=== PATIENT | male | born 1965 | race Caucasian/White ===

== ENCOUNTER → 2017-03-11 | Outpatient (CLI) | payer MEDICARE, OTHER ==
--- NOTE | 2017-03-12 10:44 | Diagnostic Imaging Report ---
Indication: COUGH Technique: Two views of the chest Comparison: 03/23/2015 Findings: Right hemidiaphragm is elevated. There is a resultant compressive atelectasis. The heart is borderline enlarged. Lungs and pleural spaces are otherwise clear. Findings are unchanged Impression: No acute process. Stable findings as described
== END | disposition home or self-care (01) ==
LOC: RAD 16:49
DX: J20.9 Acute bronchitis, unspecified (principal); R05 Cough
CPT/HCPCS: 71020

== ENCOUNTER 2017-11-25 17:04 | Outpatient (CLI) | payer MEDICARE, OTHER ==
--- NOTE | 2017-11-26 11:34 | Diagnostic Imaging Report ---
Indication: Dyspnea Comparison: March 11, 2017 2 views of the chest obtained. Studies are technically dissimilar. No obvious infiltrate seen. Lung volumes are low. Heart size is within normal limits. Bones are osteopenic. IMPRESSION: No acute findings
== END 2017-11-25 19:04 | disposition home or self-care (01) ==
LOC: RAD 17:04
DX: Z01.818 Encounter for other preprocedural examination (principal)
CPT/HCPCS: 71046

== ENCOUNTER 2020-05-02 05:55 | Day surgery (SDC) | payer OTHER, MEDICARE ==
--- NOTE | 2020-05-01 18:34 | Pre-Procedure Note/Attestation ---
Pre-Procedure Note/Attestation Complete Prior to Procedure Planned Procedure: right Procedure Narrative: Excise right cheeck skin cancer Advancement flap closure Indications for Procedure Pre-Operative Diagnosis: Skin cancer right cheek with frozen section clearance. Attestation I attest that I discussed the nature of the procedure; its benefits; risks and complications; and alternatives (and the risks and benefits of such alternatives ), prior to the procedure, with the patient (or the patient's legal business center representative). I attest that, if there was a reasonable possibility of needing a blood transfusion, the patient (or the patient's legal business center representative) was given the [facility] standardized written summary, pursuant to the Sal Nikolai Blood Safety Act ([place] Health and Safety Code # 1645, as amended). I attest that I re-evaluated the patient just prior to the surgery and that there has been no change in the patient's H&P, supplied by pts PMD and reviewed by me. Aquilino Piña MD May 01, 2020 18:34
--- NOTE | 2020-05-01 18:36 | Brief Operative Note ---
Immediate Post Operative Note Operative Note Chief Complaint: Skin cancer right cheek Pre-op Diagnosis: Skin cancer right cheek with frozen section clearance. Procedure: Excise right cheeck skin cancer Advancement flap closure Frozen section clearance Post-op Diagnosis: same as pre-op Findings: consistent w/pre-op dx studies Surgeon: Aquilino Piña [employer] Project Manager: none Additional Surgeons: none Anesthesiologist: Jaskaran Anesthesia: MAC Specimen: yes Complications: none Condition: stable Fluids: D5LR Estimated Blood Loss: volume - 15cc Drains: none Packing: none Implant(s) used?: No Aquilino Piña MD May 01, 2020 18:36
--- NOTE | 2020-05-01 18:39 | Discharge Instructions ---
Discharge Instructions Discharge Instructions Follow up with: Dr. Piña next week-pt has appt. already Diet: regular Resume Normal Activity?: Yes Activity: resume normal activities Pneumonia Vaccine: pt refused vaccine Influenza Vaccine (Aug to Jan): pt refused vaccine Follow Up Orders Pt has Keflex and Newcomb already to use post op. Pt has printed instructions and post op meds already form pre op visit in my office last week. Return to Work/School on: May 15, 2020 Special Instructions ice to right cheek x 48 hours. For Surgical Patients Dressing Care: keep dry and clean Contact your physician for: bleeding, pain, tenderness, redness, swelling, yellowish discharge in the op. site For Congestive Heart Failure Reminder Report to your physician any weight gain of 5 pounds or more in one week. Aquilino Piña MD May 01, 2020 18:38
[~2020-05-02] VITALS: Ht 190.5 cm; Wt 110.7 kg
[2020-05-02] VITALS (12 sets, daily range): BP systolic 106–121; BP diastolic 71–80
[~2020-05-02 05:55] MED LIST: dexAMETHasone 10mg/ml Inj PF*Surgery use IV ONE
[2020-05-02] MEDS ORDERED: LR 1000ml ONE (07:00)
[2020-05-02] MEDS ORDERED: NS Irrig 1000ml ONE (07:00)
[2020-05-02] MEDS ORDERED: Sterile Water Irrig 1000ml IRRIG ONE (07:00)
[2020-05-02] MEDS ORDERED: ceFAZolin sod 1 GM in D5W 55 ML IV ONE (07:10)
[2020-05-02] MEDS ORDERED: Lidocaine 1% MPF 10mg/ml 5ml ONE (07:20)
[2020-05-02] MEDS ORDERED: Sodium Chloride 10ml vial INJ ONE (07:20)
[2020-05-02] MEDS ORDERED: fentaNYL 100 mcg/2 mL IV ONE (07:21)
[2020-05-02] MEDS ORDERED: Midazolam 2mg/2ml Inj ONE (07:21)
--- NOTE | 2020-05-02 07:24 | Anethesia Preoperative Eval ---
Anesthesia Pre-op PMH/ROS General Date of Evaluation: May 02, 2020 Time of Evaluation: 07:27 Anesthesiologist: Jaskaran ASA Score: ASA 3 Mallampati Score Class I : Soft palate, uvula, fauces, pillars visible Class II: Soft palate, uvula, fauces visible Class III: Soft palate, base of uvula visible Class IV: Only hard plate visible Mallampati Classification: Class II Surgeon: Ayana Diagnosis: R Cheek Scar Surgical Procedure: Excise R Cheek Scar Anesthesia History: none Family History: no anesthesia problems Allergies: Coded Allergies: DIMETHICONE (Verified Allergy, Severe, RED SKIN, 05/02/20) LEVOFLOXACIN (Verified Allergy, Severe, HIVES, 05/02/20) PROCHLORPERAZINE (Verified Allergy, Severe, Anaphylaxis, 05/01/20) VALACYCLOVIR (Verified Allergy, Severe, HIVES , ITCHING, 05/02/20) ZOLPIDEM (Verified Allergy, Severe, Anaphylaxis, 05/01/20) ERYTHROMYCIN BASE (Verified Allergy, Intermediate, Rash, 05/01/20) cramping SULFA (SULFONAMIDE ANTIBIOTICS) (Verified Allergy, Unknown, 05/02/20) Medications: see eMAR Patient NPO?: Yes Past Medical History Cardiovascular: Reports: other - HL Gastrointestinal/Genitourinary: Reports: GERD Hematology/Immune: Reports: other - HIV, Multiple Tumors PSxH Narrative: Multiple Abd Operations Anesthesia Pre-op Phys. Exam Physician Exam Last Vital Signs Date Time Temp Pulse Resp B/P (MAP) Pulse Ox O2 Delivery O2 Flow Rate FiO2 05/02/20 06:32 97.6 77 18 115/79 96 Room Air Constitutional: NAD Neurologic: CN 2-12 intact Cardiovascular: RRR Respiratory: CTA Gastrointestinal: S/NT/ND Airway Exam Mallampati Score: Class II MO: full ROM: limited Teeth: missing, intact Anesthesia Pre-op A/P Risk Assessment & Plan Assessment: ASA 3 Plan: GA, SED Status Change Before Surgery: No Pre-Antibiotics Dru Gram Ancef IV Given Within 1 Hr of Incision: Yes Time Given: 07:51 Merrill Jessica MD May 02, 2020 07:24
--- NOTE | 2020-05-02 07:25 | Immediate Post-Op Evaluation ---
Immediate Post-Op Evalulation Immediate Post-Op Evalulation Procedure: Excise R Cheek Scar Date of Evaluation: May 02, 2020 Time of Evaluation: 09:30 IV Fluids: 900 LR Blood Products: 0 Estimated Blood Loss: 15 Urinary Output: 0 Blood Pressure Systolic: 113 Blood Pressure Diastolic: 74 Pulse Rate: 72 Respiratory Rate: 16 O2 Sat by Pulse Oximetry: 100 Temperature (Fahrenheit): 97.7 Pain Score (1-10): 2 Nausea: No Vomiting: No Complications 0 Patient Status: awake, reacts, patent, extubated, none Hydration Status: adequate Dru Gram Ancef IV Given Within 1 Hr of Incision: Yes Time Given: 07:51 Merrill Jessica MD May 02, 2020 07:25
--- NOTE | 2020-05-02 07:25 | 48 Hour Post Anesthesia Eval ---
Post Anesthesia Evaluation Procedure: Excise R Cheek Scar Date of Evaluation: May 02, 2020 Time of Evaluation: 11:43 Blood Pressure Systolic: 118 0: 83 Pulse Rate: 72 Respiratory Rate: 18 Temperature (Fahrenheit): 98 O2 Sat by Pulse Oximetry: 96 Airway: patent Nausea: No Vomiting: No Pain Intensity: 2 Hydration Status: adequate Cardiopulmonary Status: Stable Mental Status/LOC: patient returned to baseline Follow-up Care/Observations: 0 Post-Anesthesia Complications: 0 Follow-up care needed: ready to discharge Merrill Jessica MD May 02, 2020 07:25
[2020-05-02] MEDS ORDERED: Lidocaine 1% 10mg/ml/Epi 0.005mg/ml 30ml vial INJ ONE (07:27)
[2020-05-02] MEDS ORDERED: VITAMIN D PO (07:28)
[2020-05-02] MEDS ORDERED: IPRATROPIU0.2 MG/1 M HHN (07:28)
[2020-05-02] MEDS ORDERED: MAXALT10 MG PO (07:28)
[2020-05-02] MEDS ORDERED: TRELEGY ELLIPTA INH (07:28)
[2020-05-02] MEDS ORDERED: SPRIX PO (07:28)
[2020-05-02] MEDS ORDERED: CELEBREX200 MG ORAL (07:28)
[2020-05-02] MEDS ORDERED: BUDESONIDE0.5 MG/2 M IH (07:28)
[2020-05-02] MEDS ORDERED: FLAX SEED OIL1000 MG PO (07:28)
[2020-05-02] MEDS ORDERED: ZYRTEC10 MG ORAL (07:28)
[2020-05-02] MEDS ORDERED: LYRICA75 M1 ORAL (07:28)
[2020-05-02] MEDS ORDERED: SIMETHICONE180 MG PO (07:28)
[2020-05-02] MEDS ORDERED: TRAMADOL HCL50 MG ORAL (07:28)
[2020-05-02] MEDS ORDERED: GABAPENTIN600 MG ORAL (07:28)
[2020-05-02] MEDS ORDERED: ZETIA10 MG ORAL (07:28)
[2020-05-02] MEDS ORDERED: [UNRECOGNIZED DRUG - OTHER] PO (07:28)
[2020-05-02] MEDS ORDERED: SINGULAIR10 MG ORAL (07:28)
[2020-05-02] MEDS ORDERED: ZOFRAN4 M1 ORAL (07:28)
[2020-05-02] MEDS ORDERED: EDURANT25 MG PO (07:28)
[2020-05-02] MEDS ORDERED: INSPRA50 MG PO (07:28)
[2020-05-02] MEDS ORDERED: CYMBALTA60 MG ORAL (07:28)
[2020-05-02] MEDS ORDERED: CYCLOBENZAPRINE10 MG ORAL (07:28)
[2020-05-02] MEDS ORDERED: AMITIZA24 MCG ORAL (07:28)
[2020-05-02] MEDS ORDERED: QVAR7.3 GM INH (07:28)
[2020-05-02] MEDS ORDERED: SONATA PO (07:28)
[2020-05-02] MEDS ORDERED: VENTOLIN HFA18 GM INH (07:28)
[2020-05-02] MEDS ORDERED: ATORVASTATIN CA20 MG ORAL (07:28)
[2020-05-02] MEDS ORDERED: SILENOR3 MG PO (07:28)
[2020-05-02] MEDS ORDERED: ACYCLOVIR400 MG ORAL (07:28)
[2020-05-02] MEDS ORDERED: BIKTARVY 50-201 EACH PO (07:28)
[2020-05-02] MEDS ORDERED: ALBUTEROL2.5 MG/3 M INH (07:28)
[2020-05-02] MEDS ORDERED: MULTI VITAMIN1 EACH ORAL (07:28)
[2020-05-02] MEDS ORDERED: BENADRYL25 MG ORAL (07:28)
[2020-05-02] MEDS ORDERED: LR 1000ml 1,000 ML IVLG SCH (07:32)
[2020-05-02] MEDS ORDERED: HYDROcodone/Acetamin 7.5/325 tab ORAL PRN (07:45)
[2020-05-02] MEDS ORDERED: LORazepam Inj 2mg/ml 1ml IV PRN (07:45)
[2020-05-02] MEDS ORDERED: Ketorolac 30mg Inj IV PRN ×2 (07:45)
[2020-05-02] MEDS ORDERED: oxyCODONE HCL/Acetaminophen 5/325mg ORAL PRN (07:45)
[2020-05-02] MEDS ORDERED: Hydromorphone 0.5mg/0.5ml inj IVP PRN (07:45)
[2020-05-02] MEDS ORDERED: Labetalol 5mg/ml 20ml vial IV PRN (07:45)
[2020-05-02] MEDS ORDERED: fentaNYL 100 mcg/2 mL IV PRN (07:45)
[2020-05-02] MEDS ORDERED: DiphenhydrAMINE 50mg/ml Inj IVP PRN (07:45)
[2020-05-02] MEDS ORDERED: Acetaminophen (Non formulary) 100 ML IV ONE (07:45)
[2020-05-02] MEDS ORDERED: Metoclopramide 10mg/2ml Inj IVP PRN ×2 (07:45→09:15)
[2020-05-02] MEDS ORDERED: Meperidine 25mg/0.5ml Inj (FOR RIGORS ONLY) IV PRN (07:45)
[2020-05-02] MEDS ORDERED: Midazolam 2mg/2ml Inj IVP PRN (07:45)
[2020-05-02] MEDS ORDERED: Atropine Sulfate 0.4mg/ml inj IVP PRN (07:45)
[2020-05-02] MEDS ORDERED: HYDROcodone/Acetamin 5/325 tab ORAL PRN ×2 (07:45→09:15)
[2020-05-02] MEDS ORDERED: chondroitin PO (08:46)
[2020-05-02] MEDS ORDERED: GLUCOSAMINE1000 M1 PO (08:46)
[2020-05-02] MEDS ORDERED: [UNRECOGNIZED DRUG - OTHER] BOTH EYES (08:46)
[2020-05-02] MEDS ORDERED: LUTIN PO (08:46)
[2020-05-02] MEDS ORDERED: [UNRECOGNIZED DRUG - OTHER] PO (08:46)
[2020-05-02] MEDS ORDERED: MAGNESIUM250 M3 PO (08:46)
[2020-05-02] MEDS ORDERED: COQ1050 MG PO (08:46)
[2020-05-02] MEDS ORDERED: HYDROmorphone 1mg/ml Carpuject SUBQ PRN (09:15)
[2020-05-02] MEDS ORDERED: DiphenhydrAMINE 25mg Tab ORAL PRN (09:15)
[2020-05-02] MEDS ORDERED: PENNSAID112 GM TP (09:34)
[2020-05-02] MEDS ORDERED: VOLTAREN100 G1 TP (09:34)
[2020-05-02] MEDS ORDERED: ROZEREM8 MG PO (09:34)
--- NOTE | 2020-05-02 12:45 | Operative Note - Dictated ---
DATE OF OPERATION: 05/02/2020 SURGEON: Aquilino Piña MD CLINICAL NURSE LEADER: None. ANESTHESIOLOGIST: Merrill Jessica MD. ANESTHESIA: LMA general and 7 mL of 1% lidocaine with 100,000 epinephrine. 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 He is scheduled for excision with frozen section and advancement flap closure. PREOPERATIVE DIAGNOSIS: Squamous cell carcinoma. POSTOPERATIVE DIAGNOSIS: Squamous cell carcinoma. FINDINGS: The margins from 6, 9 to 12 were clear. The first margin from 12 to 3 was positive. The second margin from 12, 3 to 6 was all negative. Therefore, the cancer was cleared. PROCEDURE: 1. Excision of squamous cell carcinoma, right face 4 x 2 cm. 2. Multilayer advancement flap closure. 3. Clearance with frozen sections. TECHNIQUE: The patient was prepped and draped in usual manner. Time-out was performed and all agreed as to the procedure to be done. After intubation, I then injected 7 mL of 1% lidocaine with 100,000 epinephrine. I made a radial incision along a pre-drawn line on the right side of the face. This coincided with his smile lines, so it camouflages once it is healed. The incision was 6 centimeters long two initially and then another centimeter was had with positive margin later. The specimen was sent for frozen section. I then proceeded to undermine 360 degrees with small Metzenbaum scissors. I approximated with 4 and 5-0 plain sutures in two layers. The epithelial edges were approximated with a running 6-0 Prolene horizontal mattress suture. Steri-Strips were placed over this, tissue glue and then Steri-Strips. EBL: 15 mL. COUNTS: None. DRAINS: None. The patient is awake alert, and stable in the operating room prior to transfer to the recovery room. Aquilino Piña M.D. DR: DARVIN JOB#: [id number] CC:
== END 2020-05-02 11:50 | disposition home or self-care (01) ==
LOC: SUR 05:55
DX: C76.0 Malignant neoplasm of head, face and neck (principal)
CPT/HCPCS: 11606; 14040; 94003; J0131; J0690; J1100; J2250; J2405; J2704; J3010; J7120; 94150; U0002